=== PATIENT | female | born 1950 | race American Indian/Alaskan Native ===

== ENCOUNTER 2020-12-17 10:03 | Outpatient (CLI) | payer OTHER ==
--- NOTE | 2020-12-17 11:32 | XRay Report ---
XR knee 1-2V RT INDICATION / CLINICAL INFORMATION: PAIN IN RIGHT KNEE. COMPARISON: None available. FINDINGS: BONES/JOINT(S): No acute fracture or subluxation. Mild tricompartmental DJD. No appreciable joint eff usion. SOFT TISSUES: No significant abnormality. ADDITIONAL FINDINGS: None. Signer Name: Alex Schwartz MD Signed: 12/17/2020 11:28 AM Workstation Name: [id number]
== END 2020-12-17 10:04 | disposition home or self-care (01) ==
LOC: XRAY 10:03
PROVIDERS: ATTEND Orthopaedic Surgery
DX: M17.11 Unilateral primary osteoarthritis, right knee (principal)